=== PATIENT | male | born 1995 | race Two or more races ===

== ENCOUNTER 2022-03-06 15:36 | Emergency (ER) | payer SELFPAY ==
[~2022-03-06] VITALS: Ht 165.1 cm; Wt 118.0 kg
[2022-03-06 16:04] VITALS: BP 152/118
== END 2022-03-06 19:04 | disposition left against medical advice (07) ==
LOC: ER 15:36
DX: M54.2 Cervicalgia (principal); M25.512 Pain in left shoulder; M25.511 Pain in right shoulder; Z53.21 Procedure and treatment not carried out due to patient leaving prior to being seen by health care provider